=== PATIENT | female | born 1990 | race Two or more races ===

== ENCOUNTER 2016-12-26 19:12 | Emergency (ER) | payer MEDICAID ==
[~2016-12-26] VITALS: Ht 154.9 cm; Wt 89.5 kg
[~2016-12-26 19:12] MED LIST: AMO500 PO; BACTDS PO; IBUP-1542 PO
[2016-12-26 20:10] VITALS: Ht 154.9 cm; Wt 89.5 kg
[2016-12-26] MEDS ORDERED: DIPHTH/TET/ACEL PERTUSS (ADULT) 0.5 ML VIAL IM* ONE (22:00)
[2016-12-26] MEDS ORDERED: NAPR-260 PO (22:47)
[2016-12-26] MEDS ORDERED: CEPH-443 PO (22:47)
[2016-12-26 22:58] VITALS: TEMP 98.5
--- NOTE | 2016-12-27 01:58 | ERD ---
ER Documentation Chief Complaint Date/Time DATE: 12/27/16 TIME: 01:54 Chief Complaint LACERATION TO RIGHT PLANTAR FOOT LAST NIGHT. HPI This is a 26-year-old female presents to the ER with multiple complaints. Yesterday patient stepped on what she thinks is a piece of rock and obtained a laceration to the right plantar foot. Patient states that her friend claimed that however it is very painful and patient developed a fever today. Patient is also complaining of frequent headaches over the last few months which are associated with dizziness. Patient states she is very stressed, headache is located in the frontal portion of her head and is nonradiating. Aches are intermittently occur about 1-2 times a week. Patient has not tried anything for the pain. Patient's dizziness is described as feeling lightheaded. This also occurs 1-2 times a week whenever she is having a headache. Patient denies any vision loss, vision changes. She denies any head trauma. Patient denies any neck pain or neck stiffness. She does not have a headache at this time and is not dizzy at this time. She denies any chest pain or shortness of breath. She denies palpitations. ROS 12 point review of systems was done, all negative except per HPI. Medications Home Meds Active Scripts Naproxen* (Naprosyn*) 500 Mg Tablet, 500 MG PO BID Y for PAIN AND/OR INFLAMMATION, #30 TAB Prov:GLADYS FINLEY 12/26/16 Cephalexin* (Keflex*) 500 Mg Capsule, 500 MG PO QID for 7 Days, CAP Prov:GLADYS FINLEY 12/26/16 Ibuprofen* (Motrin*) 600 Mg Tab, 600 MG PO Q6, #20 TAB Prov:ARSENIO REESE MD 06/23/16 Amoxicillin* (Amoxicillin*) 500 Mg Cap, 500 MG PO TID for 10 Days, CAP Prov:ARSENIO REESE MD 06/23/16 Sulfamethoxazole-Trimethoprim* (Bactrim* DS) 800-160 Mg Tab, 1 TAB PO BID for 3 Days, TAB Prov:LAURYN LEVY DO 04/05/15 Allergies Allergies: Coded Allergies: No Known Allergy (Verified , 12/26/16) PMhx/Soc Medical and Surgical Hx: pt denies Medical Hx, pt denies Surgical Hx History of Surgery: No Anesthesia Reaction: No Hx Neurological Disorder: No Hx Respiratory Disorders: No Hx Cardiac Disorders: No Hx Psychiatric Problems: No Hx Miscellaneous Medical Probl: No Hx Alcohol Use: No Hx Substance Use: No Hx Tobacco Use: No Smoking Status: Never smoker Physical Exam Vitals Vital Signs Date Time Temp Pulse Resp B/P Pulse Ox O2 Delivery O2 Flow Rate FiO2 12/26/16 22:58 98.5 12/26/16 20:10 100.3 102 18 137/62 99 Physical Exam GENERAL: The patient is well developed and appropriate for usual state of health , in no apparent distress. HEENT: Atraumatic. Conjunctivae are pink. Pupils equal, round, and reactive to light. Extraocular muscles are grossly intact. Bilateral tympanic membranes are clear with no evidence of erythema, bulging or perforation. No sinus tenderness. NECK: C-spine is soft and supple. There is no cervical lymphadenopathy. CHEST: Clear to auscultation bilaterally. There are no rales, wheezes or rhonchi. HEART: Regular rate and rhythm. No murmurs, clicks, rubs or gallops. EXTREMITIES: Equal pulses bilaterally. There is no peripheral clubbing, cyanosis or edema. No focal swelling or erythema. Full range of motion. Grossly neurovascularly intact. NEURO: Alert and oriented. Cranial nerves II through XII are intact. Motor strength in all 4 extremities with 5/5 strength. Sensation grossly intact. Normal speech and gait. Negative Rhomberg. +2 DTRs. SKIN: There is an avulsion laceration to the right plantar foot. Results 24 hrs Current Medications Medications (Trade) Dose Ordered Sig/Trosten Route PRN Reason Start Time Stop Time Status Last Admin Dose Admin Diphtheria/ Tetanus/Acell Pertussis (Adacel) 0.5 ml ONCE ONCE IM* 12/26/16 22:00 12/26/16 22:01 DC 12/26/16 22:52 Procedures/MDM This is a 26-year-old female presents to the ER with a laceration to the right plantar foot. At this time is an avulsion laceration and I am unable to repair it. Area was however irrigated with copious amounts of normal saline and then dressed. Patient was given a Tdap shot as she was unsure of how she cut her foot as she did not have a recurrence Tdap injection. Patient will be sent home with Keflex that she does have a low-grade fever and it may be secondary to laceration. Patient has had headaches for months now, this is likely acute on chronic pain. Patient is neurologically intact with no focal neurological deficits. I do not believe that patient needs further workup at this time. Patient will be sent home with naproxen for headaches. In regards to patient's dizziness, it has also been going on for months and is associated with patient' s headaches. At this time I doubt hypoglycemia, cardiac arrhythmia, infection, anemia. Patient urgently needs to follow-up with her primary care doctor and see a neurologist. Patient needs to return to ER sooner if symptoms worsen. My medical decision making shared with the patient she understands and agrees with plan. Departure Diagnosis: Primary Impression: Laceration Condition: Stable Patient Instructions: Laceration, All Additional Instructions: Call your primary care doctor TOMORROW for an appointment during the next 1-2 days.See the doctor sooner or return here if your condition worsens before your appointment time. GLADYS FINLEY Dec 27, 2016 01:58
== END 2016-12-26 22:58 | disposition home or self-care (01) ==
LOC: FTE 19:12
DX: S91.311A Laceration without foreign body, right foot, initial encounter (principal); W22.8XXA Striking against or struck by other objects, initial encounter; Y92.9 Unspecified place or not applicable; Z23 Encounter for immunization
CPT/HCPCS: 90471; 90715

== ENCOUNTER 2018-11-18 02:38 | Emergency (ER) | payer SELFPAY ==
[~2018-11-18] VITALS: Ht 160 cm; Wt 95.2 kg
[~2018-11-18 02:38] MED LIST changes: -AMO500 PO; +AMOX500C2 PO; +CEPH-443 PO; +NAPR-985 PO
[2018-11-18 02:48] VITALS: BP 125/71; PULSE 94; RESP 18; Ht 160 cm; Wt 95.2 kg
[2018-11-18] MEDS ORDERED: ACETAMINOPHEN 325 MG TAB PO ONE (03:00)
[2018-11-18] MEDS ORDERED: ALBU8.5H8 INH (03:33)
[2018-11-18] MEDS ORDERED: D-ME473S2 PO (03:33)
--- NOTE | 2018-11-18 03:44 | ERD ---
ER Documentation Chief Complaint Chief Complaint COUGH, FEVER, SORE THROAT X 3DAYS, FLU LIKE SYMPTOMS HPI This is an otherwise healthy 28-year-old female who presents to the ED with complaints of sore throat, cough, nasal congestion, and subjective fevers times 3 days. Patient is here with her her son who was diagnosed with the influenza today. She is otherwise tolerating fluids at home. Denies any nausea, vomiting, diarrhea, abdominal pain, chest pain or any other symptoms. She does report feeling short of breath at times with some chest tightness. No wheezing reported. She states her cough is worse at nighttime, and she is unable to sleep throughout the night. She has been taking [id number] cough medications with no relief. She states she has had multiple ill contacts. ROS All systems reviewed and are negative except as per history of present illness. Medications Home Meds Active Scripts Albuterol Sulfate* (Proair HFA*) 8.5 Gm Hfa.aer.ad, 2 PUFF INH Q4H PRN for WHEEZING AND SOB, #1 INHALER Prov:SHERRY DAWSON PA-C 11/18/18 Dextromethorphan Hb-Promethazine Hcl* (Promethazine DM* Syrup) 473 Ml Syrup, 5 ML PO Q6 PRN for COUGH for 5 Days, ML Prov:SHERRY DAWSON PA-C 11/18/18 Naproxen* (Naprosyn*) 500 Mg Tablet, 500 MG PO BID PRN for PAIN AND/OR INFLAMMATION, #30 TAB Prov:GLADYS FINLEY 12/26/16 Cephalexin* (Keflex*) 500 Mg Capsule, 500 MG PO QID for 7 Days, CAP Prov:MALIAGLADYS YAN 12/26/16 Ibuprofen* (Motrin*) 600 Mg Tab, 600 MG PO Q6, #20 TAB Prov:ARSENIO REESE MD 06/23/16 Amoxicillin* (Amoxicillin*) 500 Mg Cap, 500 MG PO TID for 10 Days, CAP Prov:ARSENIO REESE MD 06/23/16 Sulfamethoxazole-Trimethoprim* (Bactrim* DS) 800-160 Mg Tab, 1 TAB PO BID for 3 Days, TAB Prov:LAURYN LEVY DO 04/05/15 Allergies Allergies: Coded Allergies: No Known Allergy (Verified , 12/26/16) PMhx/Soc Medical and Surgical Hx: pt denies Medical Hx, pt denies Surgical Hx History of Surgery: No Anesthesia Reaction: No Hx Neurological Disorder: No Hx Respiratory Disorders: No Hx Cardiac Disorders: No Hx Psychiatric Problems: No Hx Miscellaneous Medical Probl: No Hx Alcohol Use: No Hx Substance Use: No Hx Tobacco Use: No Smoking Status: Never smoker Physical Exam Vitals Vital Signs Date Temp Pulse Resp B/P (MAP) Pulse Ox O2 O2 Flow FiO2 Time Delivery Rate 11/18/18 101.1 94 18 125/71 97 02:48 (89) Physical Exam Const: No acute distress Head: Atraumatic Eyes: Normal Conjunctiva ENT: Normal External Ears, Nose and Mouth. + Posterior OP erythematous with PND. No tonsillar edema or exudates. Uvula Midline. Neck: Full range of motion. No meningismus. + Bilateral cervical LAD Resp: Clear to auscultation bilaterally Cardio: Regular rate and rhythm, no murmurs Skin: No petechiae or rashes Ext: No cyanosis, or edema Neur: Awake and alert Psych: Normal Mood and Affect Results 24 hrs Current Medications Medications Dose Sig/Torstne Start Time Status Last (Trade) Ordered Route PRN Stop Time Admin Dose Reason Admin 650 mg ONCE ONCE 11/18/18 DC 11/18/18 Acetaminophen PO 03:00 03:10 (Tylenol 11/18/18 03:01 Tab) Procedures/MDM Pt is an otherwise healthy 28-year-old female who presents with flulike illness for the past 3 days. Pt is nontoxic appearing, well hydrated and tolerating PO. No signs of hypoxia or acute respiratory distress. I have low clinical suspicion for pneumonia or significant bacterial disease. History and physical not consistent with strep pharyngitis, pneumonia or any other acute bacterial process. Her son was recently diagnosed with influenza however patient does not meet criteria for influenza treatment as her symptoms have been going on for greater than 48 hours. She will be treated with outpatient supportive care. She was told to follow up with regular doctor in 1 week, otherwise return to the ED for worsening fevers, difficulty breathing, difficulty swallowing or any other concern. Prior to discharge, patients vital signs have been reviewed PRESCRIPTIONS: Promethazine DM, albuterol inhaler. SPECIALIST FOLLOW UP RECOMMENDED: None Departure Diagnosis: Primary Impression: Influenza-like symptoms Additional Impressions: Fever Laryngitis Condition: Stable Patient Instructions: Fever Control (Adult) Additional Instructions: I recommend lots of rest, fluids at home. He can take Tylenol or Motrin for any fevers or body aches. I am giving you cough medication to take as needed for your cough, and also inhaler to use any refill short of breath. Follow-up with your regular doctor in the next 3 days, otherwise return to the ED for any new or worsening symptoms. SHERRY DAWSON PA-C Nov 18, 2018 03:44
== END 2018-11-18 04:19 | disposition home or self-care (01) ==
LOC: FTE 02:38
DX: J02.9 Acute pharyngitis, unspecified (principal); J04.0 Acute laryngitis
CPT/HCPCS: 99283